=== PATIENT | male | born 1955 | race Caucasian/White ===

== ENCOUNTER 2020-12-19 08:36 | Outpatient (CLI) | payer MEDICARE, BC | END 2020-12-19 08:37 | disposition home or self-care (01) | LOC: NM 08:36 | PROVIDERS: ATTEND Psychiatry & Neurology Neurology | DX: R47.1 Dysarthria and anarthria (principal); R26.89 Other abnormalities of gait and mobility | CPT/HCPCS: 78803; A9584 ==

== ENCOUNTER 2022-01-21 09:43 | Outpatient (CLI) | payer MEDICARE, BC ==
[2022-01-21 11:32] LABS: #Basophils 0.1 10x3/uL (0.0-0.2); #Eosinphils 0.2 10x3/uL (0.0-0.5); #Monocytes 0.5 10x3/uL (0.0-1.1); #Neutrophils 2.7 10x3/uL (1.5-8.4); %Basophils 1.1 % (0.0-2.0); %Eosinophils 2.7 % (0.0-6.0); %Lymphocytes 37.2 % (18.0-47.0); %Monocytes 9.8 % (0.0-10.0); Hemoglobin 13.9 g/dL (13.5-17.5); Mean Corpuscular HGB CONC 33.7 g/dL (32.0-36.0); Mean Corpuscular Hemoglobin 32.4 pg (27.0-33.0); Mean Corpuscular Volume 96.3 fl (81.2-95.1); Mean Platelet Volume 10.2 fl (7.4-10.4); Platelet Count 282 10x3/uL (150-450); RBC Distribution Width 12.7 % (11.5-14.5); Red Blood Cell (RBC) Count 4.29 10x6/uL (4.32-5.72); White Blood Cell (WBC) Count 5.5 10x3/uL (3.5-10.5)
[2022-01-21 11:43] LABS: Prothrombin Time 10.9 sec (9.5-12.1)
[2022-01-21 11:47] LABS: Anion Gap 15 mmol/L (10-20); BUN (Urea Nitrogen) 11 mg/dL (8.4-25.7); Calc. Creatinine Clearance 0 mL/min (70-130); Calcium 9.9 mg/dL (7.8-10.44); Carbon Dioxide 29 mmol/L (23-31); Chloride 103 mmol/L (98-107); Estimated GFR 87; Glucose 100 mg/dL (80-115); Potassium 4.7 mmol/L (3.5-5.1); Sodium 142 mmol/L (136-145)
== END 2022-01-21 09:44 | disposition home or self-care (01) ==
LOC: LABBT 09:43
PROVIDERS: ATTEND Orthopaedic Surgery
DX: Z01.818 Encounter for other preprocedural examination (principal); M17.11 Unilateral primary osteoarthritis, right knee; Z20.822 Contact with and (suspected) exposure to COVID-19
CPT/HCPCS: 80048; 85025; 85610; 87081; 87811; 93005; 93010

== ENCOUNTER 2022-01-26 05:30 | Observation (INO) | payer MEDICARE, BC ==
[2022-01-22 12:35] VITALS: BMI 23.6
[2022-01-26] MEDS ORDERED: Sodium Chloride 0.9% 100 ML ONE ×2 (06:01→06:55)
[2022-01-26] MEDS ORDERED: Vancomycin 1 GM/200 ML BAG ONE (06:01)
[2022-01-26] MEDS ORDERED: Tranexamic Acid 1,000 MG/10 ML VIAL ONE (06:01)
[2022-01-26] MEDS ORDERED: Bupivacaine PF 0.5% 30 ML VIAL ONE (06:24)
[2022-01-26] MEDS ORDERED: Midazolam HCl 2 mg/2 ml Vial ONE (06:40)
[2022-01-26] MEDS ORDERED: Fentanyl 100 MCG/2 ML VIAL ONE ×3 (06:40→09:34)
[2022-01-26] MEDS ORDERED: Ondansetron PF 4 MG/2 ML Vial IVP PRN ×2 (06:52→08:00)
[2022-01-26] MEDS ORDERED: Zolpidem Tartrate 5 MG TAB PO PRN ×2 (06:52→08:00)
[2022-01-26] MEDS ORDERED: diphenhydrAMINE 25 MG CAP PO PRN (06:52)
[2022-01-26] MEDS ORDERED: HYDROcodone/Acetaminophen 10/325 mg Tablet PO PRN ×2 (06:52)
[2022-01-26] MEDS ORDERED: Acetaminophen 325 MG TAB PO PRN (06:52)
[2022-01-26] MEDS ORDERED: Promethazine HCl 25 MG/ML VIAL IM PRN ×2 (06:52→08:00)
[2022-01-26] MEDS ORDERED: CEFAZOLIN 2 GM VIAL ONE (06:55)
[2022-01-26] MEDS ORDERED: Ondansetron PF 4 MG/2 ML Vial ONE (07:19)
[2022-01-26] MEDS ORDERED: Lidocaine 1% PF 5 ML VIAL ONE (07:19)
[2022-01-26] MEDS ORDERED: ePHEDrine 50 MG/ML VIAL ONE (07:19)
[2022-01-26] MEDS ORDERED: Dexamethasone 20 MG/5 ML VIAL ONE (07:19)
[2022-01-26] MEDS ORDERED: Ketorolac Tromethamine 30 MG/ML VIAL ONE (07:19)
[2022-01-26] MEDS ORDERED: PROPOFOL 200 MG/20 ML VIAL ONE (07:19)
[2022-01-26] MEDS ORDERED: fentaNYL Citrate/PF 100 MCG/2 ML SYRINGE ONE ×2 (07:27→07:53)
[2022-01-26] MEDS ORDERED: Fentanyl 100 MCG/2 ML VIAL IV PRN (07:55)
[2022-01-26] MEDS ORDERED: traMADol HCl 50 MG TAB PO PRN ×2 (08:00)
[2022-01-26] MEDS ORDERED: Ropivacaine 0.2% 550 ML 550 ML NERVE BLCK SCH (08:00)
[2022-01-26] MEDS ORDERED: Meperidine HCl/PF 25 MG/ML VIAL SLOW IVP PRN (08:15)
[2022-01-26] MEDS ORDERED: HYDROmorphone 2 MG/ML VIAL SLOW IVP PRN (08:15)
[2022-01-26] MEDS ORDERED: Promethazine HCl 25 MG/ML VIAL IVPB PRN (08:15)
[2022-01-26] MEDS ORDERED: HYDROmorphone 0.5 MG/0.5 ML SYRINGE ONE (09:59)
[2022-01-26] MEDS: Cholecalciferol 1,000 UNITS (25 MCG) TAB PO SCH (11:07)
[2022-01-26] MEDS: Ascorbic Acid 500 mg Chewable Tablet PO SCH (11:07)
[2022-01-26] MEDS: Sodium Chloride 0.9% 1,000 ML IV SCH ×2 (11:07→14:53)
[2022-01-26] MEDS: Zinc Sulfate 220 MG CAP PO SCH (11:07)
[2022-01-26] MEDS: Aspirin 81 mg Enteric Coated Tablet PO SCH ×2 (11:07→20:33)
[2022-01-26] MEDS: Pyridostigmine Bromide IR 60 MG TAB PO SCH ×3 (13:58→23:59)
[2022-01-26] MEDS: Ketorolac Tromethamine 30 MG/ML VIAL IVP SCH ×3 (13:58→22:56)
[2022-01-26] MEDS ORDERED: Ketorolac Tromethamine 30 MG/ML VIAL IVP SCH (14:00)
[2022-01-26] MEDS: CEFAZOLIN 2 GM in Sodium Chloride 0.9% 100 ML IVPB SCH ×2 (14:51→22:53)
[2022-01-26] MEDS: HYDROcodone/Acetaminophen 10/325 mg Tablet PO PRN ×2 (16:08→20:32)
[2022-01-27] MEDS: Sodium Chloride 0.9% 1,000 ML IV SCH (05:18)
[2022-01-27] MEDS: HYDROcodone/Acetaminophen 10/325 mg Tablet PO PRN ×2 (06:16→09:43)
[2022-01-27] MEDS: Ketorolac Tromethamine 30 MG/ML VIAL IVP SCH (06:17)
[2022-01-27] MEDS: Pyridostigmine Bromide IR 60 MG TAB PO SCH (06:17)
[2022-01-27 07:20] LABS: Hemoglobin 11.3 g/dL (14.0-18.0); Mean Corpuscular HGB CONC 32.7 g/dL (32.0-36.0); Mean Corpuscular Hemoglobin 33.5 pg (27.0-31.0); Mean Platelet Volume 8.3 fL (7.4-10.4); Platelet Count 220 thou/uL (130-400); RBC Distribution Width 11.9 % (11.5-14.5); Red Blood Cell (RBC) Count 3.39 mill/uL (4.70-6.10)
[2022-01-27] MEDS ORDERED: Ferrous Gluconate 324 MG TAB PO SCH (08:00)
[2022-01-27] MEDS ORDERED: Senokot S 8.6-50 MG TAB PO SCH (09:00)
[2022-01-27] MEDS ORDERED: Multivitamin W/ Minerals 1 TAB PO SCH (09:00)
[2022-01-27 09:10] VITALS: BP 110/66; TEMP 97.4
[2022-01-27] MEDS: Cholecalciferol 1,000 UNITS (25 MCG) TAB PO SCH (09:47)
[2022-01-27] MEDS: Ascorbic Acid 500 mg Chewable Tablet PO SCH (09:47)
[2022-01-27] MEDS: Zinc Sulfate 220 MG CAP PO SCH (09:48)
[2022-01-27] MEDS: Aspirin 81 mg Enteric Coated Tablet PO SCH (09:48)
[2022-01-27] MEDS ORDERED: Naproxen 500 MG TAB PO SCH (12:00)
== END 2022-01-27 11:25 | disposition home or self-care (01) ==
LOC: SDC 05:30 → SJJU 06:53 → SDC 17:58
PROVIDERS: ADMIT Orthopaedic Surgery; ATTEND Orthopaedic Surgery
PROC: 0SRC069 Replacement of Right Knee Joint with Oxidized Zirconium on Polyethylene Synthetic Substitute, Cemented, Open Approach (ICD-10-PCS; principal; 2022-01-26)
PROC: 8E0YXBZ Computer Assisted Procedure of Lower Extremity (ICD-10-PCS; 2022-01-26)
DX: M17.11 Unilateral primary osteoarthritis, right knee (principal); M25.061 Hemarthrosis, right knee; E83.19 Other disorders of iron metabolism; G70.00 Myasthenia gravis without (acute) exacerbation; I48.91 Unspecified atrial fibrillation; Z79.01 Long term (current) use of anticoagulants; Z79.899 Other long term (current) drug therapy; Z88.2 Allergy status to sulfonamides
CPT/HCPCS: 20985; 27447; 73560; 85027; 96365; 96375; 96376 ×2; 97110 ×2; 97116 ×2; 97530 ×2; A4306; C1713; C1776; G0378 ×2; 36415; J0690; J1100; J1170; J1885; J2250; J2405; J2704; J2795; J3010; J3370; J3490; J7050; S0020